=== PATIENT | female | born 1985 | race Two or more races ===

== ENCOUNTER 2022-08-13 17:28 | Emergency (ER) | payer SELFPAY ==
[~2022-08-13] VITALS: Ht 165.1 cm; Wt 68.0 kg
--- NOTE | 2022-08-13 18:22 | NUR ---
"lower abdominal pain going to back +Vag discharge. Had Fever"
--- NOTE | 2022-08-13 18:40 | NUR ---
Urine sample obtained
[2022-08-13 19:19] LABS: BILIRUBIN,URINE NEGATIVE (NEGATIVE); COLOR,URINE YELLOW (YELLOW); LEUKOCYTE ESTERASE ,URINE 2+ (NEGATIVE); NITRITE, URINE NEGATIVE (NEGATIVE); PROTEIN,URINE NEGATIVE (NEGATIVE); UGLUCOSE NEGATIVE (NEGATIVE)
[2022-08-13 19:28] LABS: BACTERIA,URINE 2+ /HPF (None Seen); RBC,URINE 0-2 /HPF (0-2); WBC,URINE 21-50 /HPF (0-3)
[2022-08-13 19:56] LABS: BASOPHILS % (AUTO) 0.1 % (0.0-2.0); EOSINOPHILS % (AUTO) 0.7 % (0.0-6.0); HEMATOCRIT 40 % (33-45); HEMOGLOBIN 12.7 g/dL (11.5-14.8); LYMPHOCYTES # (AUTO) 2.7 K/uL (0.8-4.8); LYMPHOCYTES % (AUTO) 21.4 % (20.0-44.0); MEAN CORPUSCULAR HGB CONC 32 g/dl (31.0-36.0); MEAN CORPUSCULAR VOLUME 86 fL (82-100); MONOCYTES # (AUTO) 0.8 K/uL (0.1-1.30); MONOCYTES % (AUTO) 6.1 % (2.0-12.0); NEUTROPHILS # (AUTO) 8.9 K/uL (1.8-8.9); NEUTROPHILS % (AUTO) 71.7 % (43.0-81.0); PLATELET COUNT (AUTO) 255 K/uL (150-450); RED BLOOD CELL COUNT(AUTO) 4.64 MIL/uL (4.0-5.2); WHITE BLOOD COUNT (AUTO) 12.4 K/uL (4.3-11.0)
[2022-08-13] MEDS ORDERED: CEFTRIAXONE 1 G VIAL IM ONE (20:00)
[2022-08-13 20:01] LABS: ALBUMIN 3.4 g/dL (3.4-5.0); BILIRUBIN,DIRECT 0.1 mg/dL (0.0-0.2); BILIRUBIN,TOTAL 0.2 mg/dL (0.2-1.0); CALCIUM, SERUM 8.6 mg/dL (8.5-10.1); CREATININE 0.6 mg/dL (0.6-1.3); POTASSIUM 3.6 mmol/L (3.5-5.1); TOTAL PROTEIN, SERUM 7.2 g/dL (6.4-8.2)
[2022-08-13] MEDS ORDERED: CEFTRIAXONE 1GM BAG (ER ONLY) 50 ML IV ONE (20:22)
--- NOTE | 2022-08-13 20:30 | NUR ---
BLOOD BANK CLLED, PT IS NOT CANDIDATE FOR RHOGAM. PROVIDER MADE AWARE.
[2022-08-13] MEDS ORDERED: NAPR500T6 PO (20:50)
[2022-08-13] MEDS ORDERED: CEPH500T PO (20:50)
[2022-08-13] MEDS ORDERED: IBUPROFEN 600 MG TABLET PO ONE (21:00)
[2022-08-13 21:03] VITALS: BP 124/89
[2022-08-13] MEDS ORDERED: IBUPROFEN 600 MG TABLET ONE (21:03)
--- NOTE | 2022-08-13 21:09 | NUR ---
Patient discharged to home in stable condition. Written and verbal after care instructions given. Patient verbalizes understanding of instruction. IV removed. Catheter intact and site benign. Pressure and 4x4 applied to site. No bleeding noted.
== END 2022-08-13 21:09 | disposition home or self-care (01) ==
LOC: ER 17:34
DX: D25.2 Subserosal leiomyoma of uterus (principal); R10.2 Pelvic and perineal pain; E03.9 Hypothyroidism, unspecified
CPT/HCPCS: 99285; 96365; 76856; 85025; 80048; 87086; 80076; 84703; 81001; 36415; 85730; 84702; J0696

== ENCOUNTER 2023-08-20 15:46 | Emergency (ER) | payer OTHER ==
[~2023-08-20] VITALS: Ht 165.1 cm; Wt 69.9 kg
[~2023-08-20 15:46] MED LIST: CEPH500T PO; NAPR500T6 PO
[2023-08-20] MEDS ORDERED: SULF1TAB48 PO (16:36)
[2023-08-20] MEDS ORDERED: CEPH500C2 PO (16:36)
[2023-08-20 16:50] VITALS: BP 123/81; TEMP 97.9; O2SAT 97
== END 2023-08-20 16:50 | disposition home or self-care (01) ==
LOC: ER 16:05
DX: N61.0 Mastitis without abscess (principal)